=== PATIENT | female | born 1960 | race Two or more races ===

== ENCOUNTER 2021-07-13 05:30 | Day surgery (SDC) | payer OTHER ==
[~2021-07-13 05:30] MED LIST: CHILDREN'S ASPI81 MG PO; COZAAR PO; INMODIUM PO; ZOCOR20 MG PO
[2021-07-13] MEDS ORDERED: PERCOCET 5-3251 EACH PO (09:20)
[2021-07-13] MEDS ORDERED: NEURONTIN300 MG PO (09:21)
== END 2021-07-13 15:10 | disposition home or self-care (01) ==
LOC: CIR.AMB 05:30
PROVIDERS: ATTEND Surgery
DX: K62.5 Hemorrhage of anus and rectum (principal); Z20.822 Contact with and (suspected) exposure to COVID-19

== ENCOUNTER 2022-09-13 06:30 | Day surgery (SDC) | payer OTHER ==
[~2022-09-13 06:30] MED LIST changes: +NEURONTIN300 MG PO; +PERCOCET 5-3251 EACH PO; +XANAX XR0.5 MG PO
[2022-09-13] MEDS ORDERED: TRAM1TAB98 PO (09:22)
[2022-09-13] MEDS ORDERED: NEURONTIN300 MG PO (09:22)
[2022-09-13] MEDS ORDERED: LEVOFLOXACIN500 MG PO (09:23)
[2022-09-13] MEDS ORDERED: DERMOPLAST PAIN78 GM TOP (09:23)
== END 2022-09-13 14:00 | disposition home or self-care (01) ==
LOC: CIR.AMB 06:30
PROVIDERS: ATTEND Surgery
DX: K62.3 Rectal prolapse (principal); R15.9 Full incontinence of feces; K62.2 Anal prolapse; Z20.822 Contact with and (suspected) exposure to COVID-19; I10 Essential (primary) hypertension; E78.5 Hyperlipidemia, unspecified

== ENCOUNTER 2024-02-06 09:47 | Day surgery (SDC) | payer OTHER ==
[~2024-02-06 09:47] MED LIST changes: +ADULT ASPIRIN81 MG; +AMBIEN; +CEPHALEXIN500 MG PO; +DERMOPLAST PAIN78 GM TOP; +IMODIUM A-D2 M2; +LEVOFLOXACIN500 MG PO; +TOPAMAX25 MG; +TRAM1TAB98 PO
[2024-02-06] MEDS ORDERED: CEFAZOLIN SODIUM 1,000 MG VIAL ONE (14:03)
[2024-02-06] MEDS ORDERED: BUPIVACAINE HCL/MPF 0.5% 30ML VIAL ONE (14:04)
[2024-02-06] MEDS ORDERED: LIDOCAINE HCL 1%/EPINEPHRINE 20ML VIAL IJ ONE (14:04)
== END 2024-02-06 16:20 | disposition home or self-care (01) ==
LOC: CIR.AMB 09:47
PROVIDERS: ATTEND Surgery
DX: R15.9 Full incontinence of feces (principal); I10 Essential (primary) hypertension; G43.909 Migraine, unspecified, not intractable, without status migrainosus; F41.8 Other specified anxiety disorders; G40.909 Epilepsy, unspecified, not intractable, without status epilepticus
CPT/HCPCS: 64590; 95972; C1767